=== PATIENT | female | born 1975 | race Asian ===

== ENCOUNTER 2020-03-08 12:48 | Emergency (ER) | payer BC, OTHER ==
[~2020-03-08] VITALS: Ht 157.5 cm; Wt 54.4 kg
--- NOTE | 2020-03-08 13:55 | NUR ---
DR RIOS REVIEWED XRAY RESULTS W/ PT - TO TAKE TO PMD. DISCHARGE INSTRUCTIONS GIVEN BY .
[2020-03-08 13:58] VITALS: BP 110/79
== END 2020-03-08 13:59 | disposition home or self-care (01) ==
LOC: ER 12:48
DX: U07.1 COVID-19 (principal); J12.89 Other viral pneumonia
CPT/HCPCS: 71045; A4663

== ENCOUNTER 2020-03-24 16:46 | Inpatient (IN) | payer BC, OTHER ==
[~2020-03-24] VITALS: Ht 157.5 cm; Wt 52.2 kg
[2020-03-24] MEDS ORDERED: Z GUARD REMEDY PASTE 57 GM TUBE TOP PRN (19:45)
[2020-03-24] MEDS ORDERED: POLY50DR OP (22:57)
[2020-03-24] MEDS ORDERED: METO-295 PO (22:57)
[2020-03-24] MEDS ORDERED: MELA1TAB2 PO (22:57)
[2020-03-24] MEDS ORDERED: BISA-79 PO (22:57)
[2020-03-24] MEDS ORDERED: GUAI5SYR PO (22:57)
[2020-03-24] MEDS ORDERED: ALBU18HF2 INH (22:57)
[2020-03-24] MEDS ORDERED: ONDA4TAB11 PO (22:57)
[2020-03-24] MEDS ORDERED: MIDO5TAB4 PO (22:57)
[2020-03-24] MEDS ORDERED: MULT-594 PO (22:57)
[2020-03-24] MEDS ORDERED: MAGN400O6 PO (22:57)
[2020-03-24] MEDS ORDERED: DIPH25CA83 PO (22:57)
[2020-03-24] MEDS ORDERED: THIA100T74 PO (22:57)
[2020-03-24] MEDS ORDERED: ENOX40DI SQ (22:57)
[2020-03-24] MEDS ORDERED: CHOL10002 PO (22:57)
[2020-03-24] MEDS ORDERED: BENZ200C53 PO (22:57)
[2020-03-24] MEDS ORDERED: ACET-2154 PO (22:57)
[2020-03-24] MEDS ORDERED: FOLI0.8T2 PO (22:57)
[2020-03-24] MEDS ORDERED: ACET160E61 PO (22:57)
[2020-03-24 23:30] VITALS: BP 91/69
--- NOTE | 2020-03-25 02:27 | NUR ---
Received a 44yr old female from [facility] with admitting diagnosis of Pneumonia/Covid (+) AAOx4 Patient was COVID (+) while in [place] then went home with ABT's on 03/09/20 but having SOB was admitted in [facility] with same diagnosis. On continous O2 @ 2L via nasal cannula. pulse ox 100% Denies any pain nor any discomfort. VSS Patient here for rehab secondary to weakness. Continent of bowel and bladder. Compliant with care and meds. Dr Crawford (admitting) called and made aware of patient's admission. He said he will reconcile the meds as soon as he gets a chance. Texted Dr Norman that patient is here for rehab. No orders made. Will monitor patient.
[2020-03-25 04:47] VITALS: BP 120/79
--- NOTE | 2020-03-25 06:59 | NUR ---
End of shift notes: Slept well throughout the night. No acute distress noted. Still awaiting for Dr Mercer to reconcile orders. Will monitor patient. VSS. Continent/incontinent of urine. Wears diapers. No BM noted this shift.
--- NOTE | 2020-03-25 08:00 | NUR ---
RECEIVED PATIENT IN BED AWAKE ALERT AND ORIENTED ON COVID ISOLATION AT THIS TIME PATIENT STATED WANTS HER MEDICATIONS WHICH HAS NOT BEEN RECONCILED YET AND DR NEWMAN IS AWARE AND STATED WILL RECONCILE TONY PATIENT AWARE.CALL LIGHTS AND HER PERSONAL BELONGINGS ARE WITHIN EASY REACH AT THIS TIME WILL CONTINUE TO OBSERVE.
[2020-03-25] MEDS ORDERED: ACETAMINOPHEN 325 MG TABLET PO PRN (09:00)
[2020-03-25] MEDS ORDERED: BISACODYL 5 MG TABLET.DR PO PRN (09:00)
[2020-03-25] MEDS ORDERED: METOCLOPRAMIDE HCL 10 MG TABLET PO PRN (09:00)
[2020-03-25] MEDS ORDERED: Medication Not On Formulary EA (Acetaminophen 650 MG) PO SCH (09:00)
[2020-03-25] MEDS ORDERED: MAGNESIUM HYDROXIDE 30 ML LIQUID UDC PO PRN (09:00)
[2020-03-25] MEDS ORDERED: diphenhydrAMINE 25 MG CAP PO PRN (09:15)
[2020-03-25] MEDS ORDERED: POLYVINYL ALCOHOL OPHT DROPS 15 ML BOTTLE OP PRN (09:15)
[2020-03-25] MEDS ORDERED: BENZONATATE 100 MG CAPSULE PO PRN (09:15)
[2020-03-25] MEDS ORDERED: ALBUTEROL SULFATE 2.5 MG/ 0.5 ML NEBU NEB PRN (09:15)
--- NOTE | 2020-03-25 09:15 | NUR ---
DR NEWMAN HERE TO SEE PATIENT WITH NEW ORDERS AND NOTED.
[2020-03-25] MEDS: FOLIC ACID/VITAMIN B COMP W-C TABLET PO SCH (09:47)
[2020-03-25] MEDS: CHOLECALCIFEROL 1,000 UNIT TABLET PO SCH (09:48)
[2020-03-25] MEDS: MULTIVITAMINS,THERAPEUTIC TABLET PO SCH (09:48)
[2020-03-25] MEDS: THIAMINE HCL 100 MG TABLET PO SCH (09:48)
[2020-03-25 10:04] LABS: CREATININE 0.8 mg/dL (0.6-1.3)
[2020-03-25 10:27] LABS: BASOPHILS # (AUTO) 0.1 K/uL (0.0-8.0); BASOPHILS % (AUTO) 0.6 % (0.0-2.0); EOSINOPHILS # (AUTO) 0.2 K/uL (0.0-0.7); EOSINOPHILS % (AUTO) 1.9 % (0.0-7.0); HEMATOCRIT 36.8 % (31.2-41.9); HEMOGLOBIN 12.6 g/dL (10.9-14.3); LYMPHOCYTES # (AUTO) 0.6 K/uL (20.0-40.0); LYMPHOCYTES % (AUTO) 6.5 % (20.5-51.5); MEAN CORPUSCULAR HGB CONC 34 g/dL (32.3-35.6); MEAN CORPUSCULAR VOLUME 75.7 fL (75.5-95.3); MONOCYTES # (AUTO) 0.9 K/uL (2.0-10.0); MONOCYTES % (AUTO) 9.8 % (0.0-11.0); NEUTROPHILS # (AUTO) 7.3 K/uL (1.8-8.9); NEUTROPHILS % (AUTO) 81.2 % (38.5-71.5); PLATELET COUNT (AUTO) 148 K/uL (179-408); RED BLOOD CELL COUNT(AUTO) 4.86 MIL/uL (3.63-4.92)
[2020-03-25 12:00] VITALS: BP 103/78
[2020-03-25] MEDS: ENOXAPARIN SODIUM 40 MG/0.4 ML DISP.SYRIN SQ SCH (12:43)
--- NOTE | 2020-03-25 12:58 | NUR ---
ST[facility]E M[facility] PROVIDER HERE WITH ORDER TO REPEAT RANDHAWA VIRUS PCR TEST AND NOTED PATIENT NOTIFIED.
[2020-03-25] MEDS: GUAIFENESIN/DEXTROMETHORPHAN 5 ML UDC PO PRN ×2 (14:25→22:36)
[2020-03-25] MEDS: ACETAMINOPHEN 650 MG/20.3 ML LIQUID UDC PO PRN ×2 (14:25→22:37)
--- NOTE | 2020-03-25 14:27 | NUR ---
MEDICATED WITH TYLENOL AND ROBITUSSIN ORDERED PER PATIENTS REQUEST.
--- NOTE | 2020-03-25 15:00 | NUR ---
RANDHAWA VIRUS SWAB DONE ORDERED AND SENT TO THE LAB.
[2020-03-25 15:59] VITALS: BP 119/74
--- NOTE | 2020-03-25 18:00 | NUR ---
PATIENT IS RESTING DENIES DISCOMFORTS AT THIS TIME REMAIN ON COVID ISOLATION AND PRECAUTION PENDING THE COVID PCR TEST ORDERED.
[2020-03-25 20:00] VITALS: BP 99/73
[2020-03-25] MEDS ORDERED: ALBUTEROL SULFATE 2.5 MG/ 0.5 ML NEBU INH PRN (22:30)
[2020-03-25] MEDS ORDERED: ALBUTEROL SULFATE 8 GM HFA.AER.AD IH PRN (23:30)
[2020-03-26 04:00] VITALS: BP 140/89
[2020-03-26] MEDS: GUAIFENESIN/DEXTROMETHORPHAN 5 ML UDC PO PRN ×3 (05:01→21:20)
[2020-03-26] MEDS: ACETAMINOPHEN 650 MG/20.3 ML LIQUID UDC PO PRN ×3 (05:01→21:21)
--- NOTE | 2020-03-26 06:30 | NUR ---
axox4, no acute distress noted, able to make needs known. VSS on On continuos O2 @ 2L via nasal cannula, pulse ox 98%, no SOB noted. C/o mild main on lateral left side 05/25 administered Tylenol per request. administered Robitussin per request. Denies any pain nor any discomfort. VSS. Skin intact. pt independently cares for self. Attended to all needs promptly, Snacks provided. Slept well. No new changes noted. Safety measure and COVID isolation precautions maintained. Will continue plan of care and will endorse oncoming nurse accordingly.
[2020-03-26 07:35] LABS: BASOPHILS % (AUTO) 0.1 % (0.0-2.0); EOSINOPHILS # (AUTO) 0.2 K/uL (0.0-0.7); EOSINOPHILS % (AUTO) 2.4 % (0.0-7.0); HEMATOCRIT 34.4 % (31.2-41.9); HEMOGLOBIN 11.7 g/dL (10.9-14.3); LYMPHOCYTES # (AUTO) 0.9 K/uL (20.0-40.0); LYMPHOCYTES % (AUTO) 11.5 % (20.5-51.5); MEAN CORPUSCULAR HEMOGLOBIN 25.9 uug (24.7-32.8); MEAN CORPUSCULAR HGB CONC 34 g/dL (32.3-35.6); MEAN CORPUSCULAR VOLUME 76.2 fL (75.5-95.3); MONOCYTES # (AUTO) 0.6 K/uL (2.0-10.0); NEUTROPHILS # (AUTO) 5.8 K/uL (1.8-8.9); PLATELET COUNT (AUTO) 124 K/uL (179-408); RED BLOOD CELL COUNT(AUTO) 4.52 MIL/uL (3.63-4.92); WHITE BLOOD COUNT (AUTO) 7.5 K/uL (3.8-11.8)
[2020-03-26 08:00] VITALS: BP 121/75
[2020-03-26 08:25] LABS: ALANINE AMINOTRANSFERASE 41 U/L (14-59); ALKALINE PHOSPHATASE 50 U/L (50-136); ASPARTATE AMINOTRANSFERASE 16 U/L (15-37); BILIRUBIN,DIRECT 0.3 mg/dL (0.0-0.2); BILIRUBIN,TOTAL 1.5 mg/dL (0.2-1.0); CARBON DIOXIDE 27 mmol/L (21-32); CHLORIDE 98 mmol/L (98-107); CREATININE 0.5 mg/dL (0.6-1.3); GLUCOSE 117 mg/dL (74-106); PHOSPHOROUS 3.5 mg/dL (2.5-4.9); POTASSIUM 3.9 mmol/L (3.5-5.1); TOTAL PROTEIN, SERUM 6.9 g/dL (6.4-8.2); UREA NITROGEN, BLOOD 6 mg/dL (7-18)
[2020-03-26] MEDS: ENOXAPARIN SODIUM 40 MG/0.4 ML DISP.SYRIN SQ SCH (08:36)
[2020-03-26] MEDS: CHOLECALCIFEROL 1,000 UNIT TABLET PO SCH (08:41)
[2020-03-26] MEDS: ZINC SULFATE 220 MG CAPSULE PO SCH (08:41)
[2020-03-26] MEDS: THIAMINE HCL 100 MG TABLET PO SCH (08:41)
[2020-03-26] MEDS: FOLIC ACID/VITAMIN B COMP W-C TABLET PO SCH (08:41)
[2020-03-26] MEDS: ASCORBIC ACID 500 MG TABLET PO SCH (08:41)
[2020-03-26] MEDS: MULTIVITAMINS,THERAPEUTIC TABLET PO SCH (08:41)
[2020-03-26 11:54] VITALS: BP 118/78
[2020-03-26] MEDS ORDERED: IV NS 1000 ML 1,000 ML IV ONE (12:15)
[2020-03-26] MEDS ORDERED: MEROPENEM 1 G in IV NORMAL SALINE 100 ML IV ONE (14:00)
[2020-03-26 16:12] VITALS: BP 141/71
[2020-03-26] MEDS: ALPRAZOLAM 0.25 MG TABLET PO PRN (18:25)
--- NOTE | 2020-03-26 18:39 | NUR ---
Patient sitting up at the edge of bed awake AOx4, increased her own O2 from 2L to 3.5L stating she feels SOB. SKPI midline placed, running NS @ 80cc. Sat up on chair during the day and ambulated with walker. Safety precaution in place. Stated a little anxious, Xanax PRN given as ordered. No other complaints at this time. Patient filled out POLST today with wishes of FULL CODE 2x attempt and DNI. Copy placed in chart and MD still needs to sign.
[2020-03-26 20:39] VITALS: BP 93/55
--- NOTE | 2020-03-26 21:00 | NUR ---
VSS, On continuos O2 @ 3.5 via NC titrated down to 2.5, tolerating well saturating 98-100%. No SOB noted. Administered Tylenol, Melatonin and Robitussin per patient request. SKIP midline flushed, running 80cc/hr NS. Attended to all needs promptly, Snacks provided. Safety measure and COVID isolation precautions maintained. Will continue to monitor.
[2020-03-26] MEDS: MELATONIN 3 MG TABLET PO PRN (21:21)
[2020-03-26] MEDS ORDERED: MEROPENEM 1 G in IV NORMAL SALINE 100 ML IV SCH (22:00)
[2020-03-27] MEDS: ACETAMINOPHEN 650 MG/20.3 ML LIQUID UDC PO PRN ×3 (03:07→20:17)
--- NOTE | 2020-03-27 03:07 | NUR ---
per pt request administered Tylenol, c/o spasms.
[2020-03-27 06:02] VITALS: BP 108/64
[2020-03-27] MEDS: MULTIVITAMINS,THERAPEUTIC TABLET PO SCH (09:00)
[2020-03-27 10:04] LABS: IRON, SERUM 126 ug/dL (50-175)
[2020-03-27] MEDS: ZINC SULFATE 220 MG CAPSULE PO SCH (11:11)
[2020-03-27] MEDS: FOLIC ACID/VITAMIN B COMP W-C TABLET PO SCH (11:12)
[2020-03-27] MEDS: CHOLECALCIFEROL 1,000 UNIT TABLET PO SCH (11:12)
[2020-03-27] MEDS: THIAMINE HCL 100 MG TABLET PO SCH (11:12)
[2020-03-27] MEDS: ASCORBIC ACID 500 MG TABLET PO SCH (11:12)
[2020-03-27] MEDS: ENOXAPARIN SODIUM 40 MG/0.4 ML DISP.SYRIN SQ SCH (11:18)
[2020-03-27] MEDS: GUAIFENESIN/DEXTROMETHORPHAN 5 ML UDC PO PRN ×3 (12:00→20:17)
[2020-03-27] MEDS: ALPRAZOLAM 0.25 MG TABLET PO PRN (12:01)
--- NOTE | 2020-03-27 20:00 | NUR ---
Received pt up in chair. No acute distress noted. On supplemental O2 saturating @98%/. Call light within reach. All needs attended to, safety measures maintained and will continue to monitor Pt.
--- NOTE | 2020-03-27 20:30 | NUR ---
Pt. c/o of back spasms. Administered Tylenol per Pt. request.
--- NOTE | 2020-03-27 20:30 | NUR ---
Pt. c/o cough. Administered Robitussin as ordered.
[2020-03-27 20:51] VITALS: BP 126/70
[2020-03-28] MEDS: GUAIFENESIN/DEXTROMETHORPHAN 5 ML UDC PO PRN ×3 (02:35→18:31)
[2020-03-28] MEDS: ACETAMINOPHEN 650 MG/20.3 ML LIQUID UDC PO PRN ×3 (02:35→18:31)
--- NOTE | 2020-03-28 02:40 | NUR ---
Pt. c/o of back spasms, administered Tylenol as ordered.
--- NOTE | 2020-03-28 02:45 | NUR ---
Pt. c/o cough, administered Robitussin as ordered.
[2020-03-28 04:25] VITALS: BP 112/61
[2020-03-28 07:55] VITALS: BP 119/80
[2020-03-28] MEDS: ASCORBIC ACID 500 MG TABLET PO SCH (09:19)
[2020-03-28] MEDS: THIAMINE HCL 100 MG TABLET PO SCH (09:19)
[2020-03-28] MEDS: ZINC SULFATE 220 MG CAPSULE PO SCH (09:19)
[2020-03-28] MEDS: MULTIVITAMINS,THERAPEUTIC TABLET PO SCH (09:19)
[2020-03-28] MEDS: FOLIC ACID/VITAMIN B COMP W-C TABLET PO SCH (09:19)
[2020-03-28] MEDS: CHOLECALCIFEROL 1,000 UNIT TABLET PO SCH (09:19)
[2020-03-28] MEDS: ENOXAPARIN SODIUM 40 MG/0.4 ML DISP.SYRIN SQ SCH (09:20)
--- NOTE | 2020-03-28 10:00 | NUR ---
OCCASSIONAL COUGH EPISODES MEDICATED WITH COUGH MEDICATIONS ORDERED
[2020-03-28 11:48] VITALS: BP_SYST 121; BP_DIAS 71; BP_DIAS 72
[2020-03-28 15:24] VITALS: BP 99/61
--- NOTE | 2020-03-28 17:00 | NUR ---
PT/OT /SPEECH THERAPIST WAS HERE AND SEEN PATIENT ENDURANCE IS FAIR CONTINUE WITH THERAPY ORDERED AND TOLERATING WELL
--- NOTE | 2020-03-28 18:44 | NUR ---
PATIENT REQUESTED FOR TYLENOL AND COUGH SYRUP GIVEN ORDERED
[2020-03-28 20:32] VITALS: BP 118/66
[2020-03-28] MEDS: MELATONIN 3 MG TABLET PO PRN (21:16)
[2020-03-28] MEDS: MEROPENEM 0.5 G in IV NORMAL SALINE 50 ML IV SCH (22:00)
--- NOTE | 2020-03-28 22:55 | NUR ---
Patient awake with O2 inhalation at 2 LPM via NC,Saturating well.Denies SOB or pain at this time. Midline on right upper arm patent and intact.Administered IV ATB Meropenem as ordered for PNA .No a/r noted.Continue on isolation for Covid.Patient ambulates to bathroom.Will continue to monitor.call light with in reach.
[2020-03-28] MEDS ORDERED: MEROPENEM 500MG/NS 50ML PB ***ER PYXIS ONLY IV ONE (23:03)
[2020-03-28] MEDS ORDERED: MEROPENEM 500 MG VIAL IV ONE (23:13)
[2020-03-29 04:23] VITALS: BP 129/61
[2020-03-29] MEDS: MEROPENEM 0.5 G in IV NORMAL SALINE 50 ML IV SCH (05:31)
[2020-03-29 08:00] VITALS: BP 104/55
[2020-03-29] MEDS: FOLIC ACID/VITAMIN B COMP W-C TABLET PO SCH (09:34)
[2020-03-29] MEDS: ASCORBIC ACID 500 MG TABLET PO SCH (09:34)
[2020-03-29] MEDS: MULTIVITAMINS,THERAPEUTIC TABLET PO SCH (09:34)
[2020-03-29] MEDS: THIAMINE HCL 100 MG TABLET PO SCH (09:34)
[2020-03-29] MEDS: ZINC SULFATE 220 MG CAPSULE PO SCH (09:34)
[2020-03-29] MEDS: CHOLECALCIFEROL 1,000 UNIT TABLET PO SCH (09:36)
[2020-03-29] MEDS: ENOXAPARIN SODIUM 40 MG/0.4 ML DISP.SYRIN SQ SCH (09:38)
[2020-03-29] MEDS: ACETAMINOPHEN 650 MG/20.3 ML LIQUID UDC PO PRN ×2 (09:38→21:00)
[2020-03-29] MEDS: GUAIFENESIN/DEXTROMETHORPHAN 5 ML UDC PO PRN ×2 (09:38→20:59)
[2020-03-29 11:00] VITALS: BP 120/73
[2020-03-29] MEDS: MEROPENEM 1 G in IV NORMAL SALINE 100 ML IV SCH ×2 (14:52→22:06)
[2020-03-29 15:18] VITALS: BP 106/73
--- NOTE | 2020-03-29 18:35 | NUR ---
Patient remains alert, oriented x 4, not in any form of distress, on 2LPM via nasal cannula. She denies any pain or discomfort. Assisted with her needs promptly. Patient compliant with medications and tolerated well. Call light and frequently used items placed within patient's reach. Will continue to monitor and will endorse accordingly.
[2020-03-29 20:00] VITALS: BP 105/61
[2020-03-29] MEDS: MIDODRINE HCL 5 MG TABLET PO PRN (21:39)
--- NOTE | 2020-03-29 23:29 | NUR ---
Received pt resting in bed. AAO x4. On 2L O2 via NC, no acute distress noted. Denies pain/ discomfort. Due meds given as ordered. Safety measures maintained. Call light and personal items within reach. Will continue to monitor.
[2020-03-30 04:00] VITALS: BP 130/77
[2020-03-30] MEDS: MEROPENEM 1 G in IV NORMAL SALINE 100 ML IV SCH ×3 (05:06→22:02)
[2020-03-30 08:35] LABS: CREATININE 0.6 mg/dL (0.6-1.3); POTASSIUM 3.6 mmol/L (3.5-5.1)
[2020-03-30] MEDS: GUAIFENESIN/DEXTROMETHORPHAN 5 ML UDC PO PRN ×3 (08:45→23:45)
[2020-03-30] MEDS: ACETAMINOPHEN 650 MG/20.3 ML LIQUID UDC PO PRN ×3 (08:45→23:49)
[2020-03-30] MEDS: MULTIVITAMINS,THERAPEUTIC TABLET PO SCH (08:46)
[2020-03-30] MEDS: ASCORBIC ACID 500 MG TABLET PO SCH (08:46)
[2020-03-30] MEDS: ZINC SULFATE 220 MG CAPSULE PO SCH (08:46)
[2020-03-30] MEDS: THIAMINE HCL 100 MG TABLET PO SCH (08:46)
[2020-03-30] MEDS: FOLIC ACID/VITAMIN B COMP W-C TABLET PO SCH (08:46)
[2020-03-30 08:47] LABS: BASOPHILS % (AUTO) 0.9 % (0.0-2.0); EOSINOPHILS # (AUTO) 0.2 K/uL (0.0-0.7); EOSINOPHILS % (AUTO) 3.5 % (0.0-7.0); HEMOGLOBIN 10.3 g/dL (10.9-14.3); LYMPHOCYTES # (AUTO) 0.9 K/uL (20.0-40.0); LYMPHOCYTES % (AUTO) 17.5 % (20.5-51.5); MEAN CORPUSCULAR HEMOGLOBIN 26.5 uug (24.7-32.8); MEAN CORPUSCULAR HGB CONC 34 g/dL (32.3-35.6); MEAN CORPUSCULAR VOLUME 77.2 fL (75.5-95.3); MONOCYTES # (AUTO) 0.4 K/uL (2.0-10.0); NEUTROPHILS # (AUTO) 3.4 K/uL (1.8-8.9); NEUTROPHILS % (AUTO) 69.1 % (38.5-71.5); PLATELET COUNT (AUTO) 100 K/uL (179-408); RED BLOOD CELL COUNT(AUTO) 3.89 MIL/uL (3.63-4.92); WHITE BLOOD COUNT (AUTO) 4.9 K/uL (3.8-11.8)
[2020-03-30] MEDS: CHOLECALCIFEROL 1,000 UNIT TABLET PO SCH (08:47)
[2020-03-30] MEDS: ENOXAPARIN SODIUM 40 MG/0.4 ML DISP.SYRIN SQ SCH (08:48)
[2020-03-30 12:27] VITALS: BP 98/68
[2020-03-30 16:10] VITALS: BP 107/52
--- NOTE | 2020-03-30 19:34 | NUR ---
EOSS: Pt in awake, A&Ox4. No s/s of acute distress, denies pain or discomfort. Pt on RA with O2 97%. Able to make needs known, all needs attended to promptly. Care given as ordered. Due meds administered per order. SKIP midline patent and intact. Safety measures and fall precautions maintained during shift. Call light and belongings within reach. Will endorse care to night shift supervisor nurse.
[2020-03-30 20:00] VITALS: BP 112/73
--- NOTE | 2020-03-30 22:21 | NUR ---
Received pt resting in bed. AAO x4. On room air 97%, no acute distress noted. Denies pain/ discomfort. Due med given as ordered. SKIP midline, patent and intact. Safety measures maintained. Call light and personal items within reach. Will continue to monitor.
[2020-03-30] MEDS: MELATONIN 3 MG TABLET PO PRN (23:45)
[2020-03-31] MEDS: MEROPENEM 1 G in IV NORMAL SALINE 100 ML IV SCH ×3 (05:08→21:34)
[2020-03-31] MEDS: THIAMINE HCL 100 MG TABLET PO SCH (09:49)
[2020-03-31] MEDS: CHOLECALCIFEROL 1,000 UNIT TABLET PO SCH (09:49)
[2020-03-31] MEDS: FOLIC ACID/VITAMIN B COMP W-C TABLET PO SCH (09:49)
[2020-03-31] MEDS: ASCORBIC ACID 500 MG TABLET PO SCH (09:49)
[2020-03-31] MEDS: ZINC SULFATE 220 MG CAPSULE PO SCH (09:49)
[2020-03-31] MEDS: GUAIFENESIN/DEXTROMETHORPHAN 5 ML UDC PO PRN ×3 (09:49→21:23)
[2020-03-31] MEDS: MULTIVITAMINS,THERAPEUTIC TABLET PO SCH (09:49)
[2020-03-31] MEDS: ACETAMINOPHEN 650 MG/20.3 ML LIQUID UDC PO PRN ×2 (09:49→21:23)
[2020-03-31] MEDS: ENOXAPARIN SODIUM 40 MG/0.4 ML DISP.SYRIN SQ SCH (10:50)
[2020-03-31 16:00] VITALS: BP 108/78
[2020-03-31 20:00] VITALS: BP 107/73
[2020-03-31] MEDS: MELATONIN 3 MG TABLET PO PRN (21:23)
--- NOTE | 2020-03-31 23:14 | NUR ---
Patient alert x4.Ambulates to bath room.Placed oxygen back at 2LPM via NC.Midline on right upper arm patent and intact.Administered IV ATB as ordered.No a/r noted. Called pharmacy 5x to verified acyclovir.Medication given .Patient noted with cough .Robitussin given.Melatonin given PRN as per patient request. Continue safety measures.Will continue to monitor.
[2020-04-01] MEDS: ACYCLOVIR 200 MG CAPSULE PO SCH ×4 (00:08→17:24)
[2020-04-01] MEDS: MEROPENEM 1 G in IV NORMAL SALINE 100 ML IV SCH ×3 (05:02→22:39)
--- NOTE | 2020-04-01 06:54 | NUR ---
Patient awake .on RA saturating 96%.Patient requesting to speak to branch administrator via face time in A.M She also requesting to have psych eval and E[employer] Project Manager change.Will endorse to oncoming shift.
[2020-04-01 08:00] VITALS: BP 123/71
[2020-04-01] MEDS: ASCORBIC ACID 500 MG TABLET PO SCH (08:14)
[2020-04-01] MEDS: THIAMINE HCL 100 MG TABLET PO SCH (08:14)
[2020-04-01] MEDS: ACETAMINOPHEN 650 MG/20.3 ML LIQUID UDC PO PRN ×2 (08:14→22:02)
[2020-04-01] MEDS: ZINC SULFATE 220 MG CAPSULE PO SCH (08:14)
[2020-04-01] MEDS: CHOLECALCIFEROL 1,000 UNIT TABLET PO SCH (08:14)
[2020-04-01] MEDS: FOLIC ACID/VITAMIN B COMP W-C TABLET PO SCH (08:14)
[2020-04-01] MEDS: MULTIVITAMINS,THERAPEUTIC TABLET PO SCH (08:14)
[2020-04-01] MEDS: GUAIFENESIN/DEXTROMETHORPHAN 5 ML UDC PO PRN ×2 (08:14→12:39)
[2020-04-01] MEDS: ENOXAPARIN SODIUM 40 MG/0.4 ML DISP.SYRIN SQ SCH (08:18)
[2020-04-01 14:28] VITALS: BP 118/65
--- NOTE | 2020-04-01 19:26 | NUR ---
pt resting in bed, awake alert and oriented x4. pt on RA saturating 97%, no signs of distress noted. medications given as ordered. bed in low and locked position, safety precautions in place, will endorse to oncoming nurse.
[2020-04-01 20:00] VITALS: BP 126/75
--- NOTE | 2020-04-01 20:00 | NUR ---
OPENING NOTES: PT resting in bed, awake alert and oriented x4. PT on RA saturating 95%, no signs of distress noted. Bed in low and locked position, safety precautions in place, will continue to monitor and follow the plan of care.
[2020-04-01] MEDS: MELATONIN 3 MG TABLET PO PRN (22:02)
[2020-04-01] MEDS: CULTURELLE CAPSULE PO SCH (22:02)
[2020-04-02] MEDS: MEROPENEM 1 G in IV NORMAL SALINE 100 ML IV SCH ×2 (05:18→13:15)
--- NOTE | 2020-04-02 06:38 | NUR ---
CLOSING NOTES: Patient A/O x4 on 2L nasal cannula saturating at 95%.Patient requesting to speak to educational administrator via face time in A.M. PRN meds (Melatonin, Acetaminophen) given per PT request. Will endorse to oncoming shift.
[2020-04-02 07:29] LABS: BASOPHILS % (AUTO) 0.9 % (0.0-2.0); EOSINOPHILS # (AUTO) 0.2 K/uL (0.0-0.7); EOSINOPHILS % (AUTO) 5.5 % (0.0-7.0); HEMATOCRIT 28.2 % (31.2-41.9); HEMOGLOBIN 9.5 g/dL (10.9-14.3); LYMPHOCYTES # (AUTO) 0.8 K/uL (20.0-40.0); LYMPHOCYTES % (AUTO) 26.6 % (20.5-51.5); MEAN CORPUSCULAR HEMOGLOBIN 26.6 uug (24.7-32.8); MEAN CORPUSCULAR HGB CONC 34 g/dL (32.3-35.6); MONOCYTES # (AUTO) 0.3 K/uL (2.0-10.0); MONOCYTES % (AUTO) 9.5 % (0.0-11.0); NEUTROPHILS # (AUTO) 1.8 K/uL (1.8-8.9); NEUTROPHILS % (AUTO) 57.5 % (38.5-71.5); PLATELET COUNT (AUTO) 81 K/uL (179-408); RED BLOOD CELL COUNT(AUTO) 3.57 MIL/uL (3.63-4.92); WHITE BLOOD COUNT (AUTO) 3.1 K/uL (3.8-11.8)
[2020-04-02 08:17] LABS: ALANINE AMINOTRANSFERASE 36 U/L (14-59); ALKALINE PHOSPHATASE 43 U/L (50-136); ASPARTATE AMINOTRANSFERASE 20 U/L (15-37); BILIRUBIN,TOTAL 1.3 mg/dL (0.2-1.0); CARBON DIOXIDE 25 mmol/L (21-32); CHLORIDE 108 mmol/L (98-107); CREATININE 0.5 mg/dL (0.6-1.3); GLUCOSE 98 mg/dL (74-106); POTASSIUM 3.6 mmol/L (3.5-5.1); TOTAL PROTEIN, SERUM 5.9 g/dL (6.4-8.2); UREA NITROGEN, BLOOD 1 mg/dL (7-18)
[2020-04-02] MEDS: ACYCLOVIR 200 MG CAPSULE PO SCH ×3 (08:33→16:29)
[2020-04-02] MEDS: ZINC SULFATE 220 MG CAPSULE PO SCH (08:33)
[2020-04-02] MEDS: ACETAMINOPHEN 650 MG/20.3 ML LIQUID UDC PO PRN (08:33)
[2020-04-02] MEDS: GUAIFENESIN/DEXTROMETHORPHAN 5 ML UDC PO PRN ×2 (08:33→21:46)
[2020-04-02] MEDS: FOLIC ACID/VITAMIN B COMP W-C TABLET PO SCH (08:33)
[2020-04-02] MEDS: CHOLECALCIFEROL 1,000 UNIT TABLET PO SCH (08:33)
[2020-04-02] MEDS: CULTURELLE CAPSULE PO SCH ×2 (08:34→21:09)
[2020-04-02] MEDS: THIAMINE HCL 100 MG TABLET PO SCH (08:34)
[2020-04-02] MEDS: ASCORBIC ACID 500 MG TABLET PO SCH (08:34)
[2020-04-02] MEDS: MULTIVITAMINS,THERAPEUTIC TABLET PO SCH (08:34)
[2020-04-02] MEDS: ENOXAPARIN SODIUM 40 MG/0.4 ML DISP.SYRIN SQ SCH (08:37)
[2020-04-02 15:21] VITALS: BP 123/74
[2020-04-02 20:25] VITALS: BP 108/65
[2020-04-02] MEDS: MELATONIN 3 MG TABLET PO PRN (21:48)
[2020-04-03 04:20] VITALS: BP 106/70
--- NOTE | 2020-04-03 06:25 | NUR ---
Condition unchanged. AAOx4 OOB to the BR. Voiding well. BM x2 this shift. No acute distress noted. Patient maintained on isolation, COVID (+) All due meds given without any problem. All needs attended and met.
[2020-04-03 08:00] VITALS: BP 125/79
[2020-04-03 09:03] LABS: BASOPHILS % (AUTO) 0.3 % (0.0-2.0); EOSINOPHILS # (AUTO) 0.1 K/uL (0.0-0.7); EOSINOPHILS % (AUTO) 3.7 % (0.0-7.0); HEMATOCRIT 32.2 % (31.2-41.9); LYMPHOCYTES # (AUTO) 1.2 K/uL (20.0-40.0); LYMPHOCYTES % (AUTO) 30.9 % (20.5-51.5); MEAN CORPUSCULAR HEMOGLOBIN 26.9 uug (24.7-32.8); MEAN CORPUSCULAR HGB CONC 34 g/dL (32.3-35.6); MEAN CORPUSCULAR VOLUME 78.4 fL (75.5-95.3); MONOCYTES # (AUTO) 0.3 K/uL (2.0-10.0); MONOCYTES % (AUTO) 8.3 % (0.0-11.0); NEUTROPHILS # (AUTO) 2.1 K/uL (1.8-8.9); NEUTROPHILS % (AUTO) 56.8 % (38.5-71.5); PLATELET COUNT (AUTO) 104 K/uL (179-408); RED BLOOD CELL COUNT(AUTO) 4.11 MIL/uL (3.63-4.92); WHITE BLOOD COUNT (AUTO) 3.8 K/uL (3.8-11.8)
[2020-04-03 09:11] LABS: CARBON DIOXIDE 25 mmol/L (21-32); CHLORIDE 104 mmol/L (98-107); CREATININE 0.4 mg/dL (0.6-1.3); GLUCOSE 101 mg/dL (74-106); PHOSPHOROUS 2.6 mg/dL (2.5-4.9); POTASSIUM 3.9 mmol/L (3.5-5.1); UREA NITROGEN, BLOOD 1 mg/dL (7-18)
[2020-04-03] MEDS: CHOLECALCIFEROL 1,000 UNIT TABLET PO SCH (09:52)
[2020-04-03] MEDS: GUAIFENESIN/DEXTROMETHORPHAN 5 ML UDC PO PRN ×2 (09:52→18:30)
[2020-04-03] MEDS: ASCORBIC ACID 500 MG TABLET PO SCH (09:53)
[2020-04-03] MEDS: MULTIVITAMINS,THERAPEUTIC TABLET PO SCH (09:53)
[2020-04-03] MEDS: FOLIC ACID/VITAMIN B COMP W-C TABLET PO SCH (09:53)
[2020-04-03] MEDS: ZINC SULFATE 220 MG CAPSULE PO SCH (09:53)
[2020-04-03] MEDS: CULTURELLE CAPSULE PO SCH ×2 (09:53→20:24)
[2020-04-03] MEDS: ACYCLOVIR 200 MG CAPSULE PO SCH ×3 (09:53→18:30)
[2020-04-03] MEDS: THIAMINE HCL 100 MG TABLET PO SCH (09:53)
[2020-04-03] MEDS: ACETAMINOPHEN 650 MG/20.3 ML LIQUID UDC PO PRN ×2 (13:25→23:39)
[2020-04-03 16:50] VITALS: BP 111/65
[2020-04-03 21:03] VITALS: BP 110/46
[2020-04-03] MEDS: MELATONIN 3 MG TABLET PO PRN (23:41)
--- NOTE | 2020-04-04 04:03 | NUR ---
No significant change or event throughout the shift. No acute distress noted. Right upper arm PICC line, patent and intact. Central line site cleaned and dressing changed. All needs attended to promptly. Safety measures maintained. Call light and personal items within reach. Continue to monitor.
[2020-04-04] MEDS: MIDODRINE HCL 5 MG TABLET PO PRN (05:01)
--- NOTE | 2020-04-04 05:01 | NUR ---
Pt's BP this morning 92/46. Pt refused PRN midodrine. Pt stated, "I am okay, my normal is 90/60, I don't need medication". Risks and benefits explained, still refused. Continue to monitor.
[2020-04-04 05:45] VITALS: BP 92/46
[2020-04-04] MEDS: CHOLECALCIFEROL 1,000 UNIT TABLET PO SCH (08:06)
[2020-04-04] MEDS: THIAMINE HCL 100 MG TABLET PO SCH (08:06)
[2020-04-04] MEDS: ZINC SULFATE 220 MG CAPSULE PO SCH (08:06)
[2020-04-04] MEDS: FOLIC ACID/VITAMIN B COMP W-C TABLET PO SCH (08:06)
[2020-04-04] MEDS: CULTURELLE CAPSULE PO SCH ×2 (08:06→20:47)
[2020-04-04] MEDS: MULTIVITAMINS,THERAPEUTIC TABLET PO SCH (08:06)
[2020-04-04] MEDS: ASCORBIC ACID 500 MG TABLET PO SCH (08:06)
[2020-04-04 08:08] LABS: CARBON DIOXIDE 26 mmol/L (21-32); CHLORIDE 107 mmol/L (98-107); CREATININE 0.5 mg/dL (0.6-1.3); GLUCOSE 96 mg/dL (74-106); POTASSIUM 3.6 mmol/L (3.5-5.1); UREA NITROGEN, BLOOD 3 mg/dL (7-18)
[2020-04-04 08:22] LABS: BASOPHILS % (AUTO) 0.3 % (0.0-2.0); EOSINOPHILS # (AUTO) 0.1 K/uL (0.0-0.7); EOSINOPHILS % (AUTO) 3.4 % (0.0-7.0); HEMATOCRIT 28.9 % (31.2-41.9); HEMOGLOBIN 10.1 g/dL (10.9-14.3); LYMPHOCYTES # (AUTO) 1.2 K/uL (20.0-40.0); LYMPHOCYTES % (AUTO) 33.4 % (20.5-51.5); MEAN CORPUSCULAR HEMOGLOBIN 27.3 uug (24.7-32.8); MEAN CORPUSCULAR HGB CONC 35 g/dL (32.3-35.6); MEAN CORPUSCULAR VOLUME 78.1 fL (75.5-95.3); MONOCYTES # (AUTO) 0.3 K/uL (2.0-10.0); MONOCYTES % (AUTO) 9.8 % (0.0-11.0); NEUTROPHILS # (AUTO) 1.8 K/uL (1.8-8.9); NEUTROPHILS % (AUTO) 53.1 % (38.5-71.5); PLATELET COUNT (AUTO) 93 K/uL (179-408); WHITE BLOOD COUNT (AUTO) 3.4 K/uL (3.8-11.8)
[2020-04-04] MEDS: ACETAMINOPHEN 650 MG/20.3 ML LIQUID UDC PO PRN ×2 (08:27→23:21)
[2020-04-04] MEDS: GUAIFENESIN/DEXTROMETHORPHAN 5 ML UDC PO PRN ×2 (08:27→23:14)
[2020-04-04 16:00] VITALS: BP 101/71
--- NOTE | 2020-04-04 18:29 | NUR ---
no changes noted during shift, patient is alert, oriented x4, room air, tolerating going to bathroom to bed, and ambulating to the bathroom without any distress, still noted with mild cough, cough syrup administered per patient request. effective.
[2020-04-04 20:03] VITALS: BP 106/62
[2020-04-04 21:20] LABS: BAND % (MANUAL) 1 % (0-10); EOSINOPHILS % (MANUAL) 4 % (0-8); LYMPHOCYTES % (MANUAL) 21 % (20-40); MONOCYTES % (MANUAL) 8 % (2-10); NEUTROPHILS % (MANUAL) 65 % (42-75)
[2020-04-04] MEDS: MELATONIN 3 MG TABLET PO PRN (23:14)
[2020-04-05 04:03] VITALS: BP_SYST 101; BP_SYST 106; BP_DIAS 62; BP_DIAS 63
[2020-04-05 06:49] LABS: BASOPHILS % (AUTO) 0.3 % (0.0-2.0); EOSINOPHILS # (AUTO) 0.1 K/uL (0.0-0.7); EOSINOPHILS % (AUTO) 3.9 % (0.0-7.0); HEMATOCRIT 30.4 % (31.2-41.9); HEMOGLOBIN 10.3 g/dL (10.9-14.3); LYMPHOCYTES # (AUTO) 1.1 K/uL (20.0-40.0); LYMPHOCYTES % (AUTO) 34.3 % (20.5-51.5); MEAN CORPUSCULAR HEMOGLOBIN 26.9 uug (24.7-32.8); MEAN CORPUSCULAR HGB CONC 34 g/dL (32.3-35.6); MEAN CORPUSCULAR VOLUME 79.7 fL (75.5-95.3); MONOCYTES # (AUTO) 0.3 K/uL (2.0-10.0); MONOCYTES % (AUTO) 10.3 % (0.0-11.0); NEUTROPHILS # (AUTO) 1.6 K/uL (1.8-8.9); NEUTROPHILS % (AUTO) 51.2 % (38.5-71.5); PLATELET COUNT (AUTO) 102 K/uL (179-408); RED BLOOD CELL COUNT(AUTO) 3.82 MIL/uL (3.63-4.92); WHITE BLOOD COUNT (AUTO) 3.2 K/uL (3.8-11.8)
[2020-04-05 07:06] LABS: ALANINE AMINOTRANSFERASE 28 U/L (14-59); ALKALINE PHOSPHATASE 50 U/L (50-136); ASPARTATE AMINOTRANSFERASE 15 U/L (15-37); BILIRUBIN,TOTAL 1.8 mg/dL (0.2-1.0); CARBON DIOXIDE 26 mmol/L (21-32); CHLORIDE 107 mmol/L (98-107); CREATININE 0.4 mg/dL (0.6-1.3); GLUCOSE 84 mg/dL (74-106); POTASSIUM 3.4 mmol/L (3.5-5.1); TOTAL PROTEIN, SERUM 6.1 g/dL (6.4-8.2); UREA NITROGEN, BLOOD 2 mg/dL (7-18)
[2020-04-05 07:15] LABS: THYROID STIMULATING HORMONE 1.013 mIU/mL (0.358-3.740)
[2020-04-05] MEDS: ASCORBIC ACID 500 MG TABLET PO SCH (08:11)
[2020-04-05] MEDS: CHOLECALCIFEROL 1,000 UNIT TABLET PO SCH (08:11)
[2020-04-05] MEDS: FOLIC ACID/VITAMIN B COMP W-C TABLET PO SCH (08:13)
[2020-04-05] MEDS: ZINC SULFATE 220 MG CAPSULE PO SCH (08:13)
[2020-04-05] MEDS: MULTIVITAMINS,THERAPEUTIC TABLET PO SCH (08:13)
[2020-04-05] MEDS: CULTURELLE CAPSULE PO SCH ×2 (08:13→20:59)
[2020-04-05] MEDS: THIAMINE HCL 100 MG TABLET PO SCH (08:13)
[2020-04-05] MEDS: ACETAMINOPHEN 650 MG/20.3 ML LIQUID UDC PO PRN ×2 (08:22→23:13)
[2020-04-05] MEDS: GUAIFENESIN/DEXTROMETHORPHAN 5 ML UDC PO PRN ×2 (08:22→23:13)
[2020-04-05 09:00] VITALS: BP 116/78
--- NOTE | 2020-04-05 09:51 | NUR ---
Informed Dr. Arauz who is in the unit about Potassium level 3.4 with no new order at this time.
[2020-04-05] MEDS ORDERED: POTASSIUM CHLORIDE 20 MEQ TAB.PRT.SR PO ONE (12:00)
[2020-04-05] MEDS: ENSURE CLEAR 240 ML LIQUID (MIX BERRY) PO SCH ×2 (13:01→19:03)
[2020-04-05 15:56] VITALS: BP 105/58
[2020-04-05 20:00] VITALS: BP 115/66
[2020-04-05] MEDS: MELATONIN 3 MG TABLET PO PRN (23:13)
[2020-04-06 04:00] VITALS: BP 103/58
--- NOTE | 2020-04-06 05:23 | NUR ---
Shift End Report: Vs stable. slept good. No complaint presented. Very independent. All needs attended and met. No significant event reported all night. Continue current rehab plan of care.
[2020-04-06 08:29] VITALS: BP 105/72
[2020-04-06] MEDS: ZINC SULFATE 220 MG CAPSULE PO SCH (08:56)
[2020-04-06] MEDS: CHOLECALCIFEROL 1,000 UNIT TABLET PO SCH (08:56)
[2020-04-06] MEDS: CULTURELLE CAPSULE PO SCH ×2 (08:56→20:44)
[2020-04-06] MEDS: MULTIVITAMINS,THERAPEUTIC TABLET PO SCH (08:56)
[2020-04-06] MEDS: THIAMINE HCL 100 MG TABLET PO SCH (08:56)
[2020-04-06] MEDS: ENSURE CLEAR 240 ML LIQUID (MIX BERRY) PO SCH ×3 (08:57→16:09)
[2020-04-06] MEDS: ASCORBIC ACID 500 MG TABLET PO SCH (08:58)
[2020-04-06] MEDS: FOLIC ACID/VITAMIN B COMP W-C TABLET PO SCH (08:58)
[2020-04-06] MEDS: GUAIFENESIN/DEXTROMETHORPHAN 5 ML UDC PO PRN ×2 (09:22→22:07)
[2020-04-06 15:43] VITALS: BP 123/73
--- NOTE | 2020-04-06 18:59 | NUR ---
no changes noted during shift, needs attended timely
[2020-04-06 20:25] VITALS: BP 110/74
[2020-04-06] MEDS: MELATONIN 3 MG TABLET PO PRN (22:07)
[2020-04-06] MEDS: ACETAMINOPHEN 650 MG/20.3 ML LIQUID UDC PO PRN (22:07)
[2020-04-07 04:00] VITALS: BP 104/53
--- NOTE | 2020-04-07 06:17 | NUR ---
Shift End Report: No significant event reported all night, Slept well. Continue current rehab plan of care.
[2020-04-07 07:12] LABS: BASOPHILS % (AUTO) 0.6 % (0.0-2.0); EOSINOPHILS # (AUTO) 0.1 K/uL (0.0-0.7); EOSINOPHILS % (AUTO) 3.7 % (0.0-7.0); HEMATOCRIT 32.8 % (31.2-41.9); HEMOGLOBIN 11.2 g/dL (10.9-14.3); LYMPHOCYTES # (AUTO) 1.2 K/uL (20.0-40.0); LYMPHOCYTES % (AUTO) 33.9 % (20.5-51.5); MEAN CORPUSCULAR HEMOGLOBIN 27.1 uug (24.7-32.8); MEAN CORPUSCULAR HGB CONC 34 g/dL (32.3-35.6); MEAN CORPUSCULAR VOLUME 79.4 fL (75.5-95.3); MONOCYTES # (AUTO) 0.4 K/uL (2.0-10.0); MONOCYTES % (AUTO) 11.8 % (0.0-11.0); NEUTROPHILS # (AUTO) 1.8 K/uL (1.8-8.9); PLATELET COUNT (AUTO) 142 K/uL (179-408); RED BLOOD CELL COUNT(AUTO) 4.13 MIL/uL (3.63-4.92); WHITE BLOOD COUNT (AUTO) 3.7 K/uL (3.8-11.8)
[2020-04-07 07:36] LABS: CARBON DIOXIDE 24 mmol/L (21-32); CHLORIDE 103 mmol/L (98-107); CREATININE 0.4 mg/dL (0.6-1.3); GLUCOSE 110 mg/dL (74-106); MAGNESIUM 1.7 mg/dL (1.8-2.4); PHOSPHOROUS 4.7 mg/dL (2.5-4.9); POTASSIUM 3.7 mmol/L (3.5-5.1); UREA NITROGEN, BLOOD 6 mg/dL (7-18)
[2020-04-07 07:54] VITALS: BP 122/59
[2020-04-07] MEDS: ASCORBIC ACID 500 MG TABLET PO SCH (08:19)
[2020-04-07] MEDS: CULTURELLE CAPSULE PO SCH ×2 (08:19→21:19)
[2020-04-07] MEDS: THIAMINE HCL 100 MG TABLET PO SCH (08:19)
[2020-04-07] MEDS: MULTIVITAMINS,THERAPEUTIC TABLET PO SCH (08:19)
[2020-04-07] MEDS: ZINC SULFATE 220 MG CAPSULE PO SCH (08:19)
[2020-04-07] MEDS: CHOLECALCIFEROL 1,000 UNIT TABLET PO SCH (08:19)
[2020-04-07] MEDS: ENSURE CLEAR 240 ML LIQUID (MIX BERRY) PO SCH ×3 (08:20→17:33)
[2020-04-07] MEDS: FOLIC ACID/VITAMIN B COMP W-C TABLET PO SCH (08:32)
[2020-04-07] MEDS: GUAIFENESIN/DEXTROMETHORPHAN 5 ML UDC PO PRN ×2 (08:32→21:19)
[2020-04-07] MEDS: ACETAMINOPHEN 650 MG/20.3 ML LIQUID UDC PO PRN ×2 (08:32→21:19)
[2020-04-07] MEDS ORDERED: MAGNESIUM OXIDE 400 MG TABLET PO ONE (09:45)
[2020-04-07 14:52] VITALS: BP 111/73
--- NOTE | 2020-04-07 19:30 | NUR ---
no changes noted during shift, no distress noted
[2020-04-07 20:00] VITALS: BP 111/70
[2020-04-07] MEDS: MELATONIN 3 MG TABLET PO PRN (21:26)
--- NOTE | 2020-04-07 21:30 | NUR ---
axox4, no acute distress noted, able to make needs known. VSS on RA ox @ 95%, no SOB noted. Denies any pain at the moment but pt requested Tylenol PRN. Administered Robitussin and Melatonin PRN., per pt request. All due medication administered. Skin intact. Attended to all needs promptly, Snacks provided. Slept well. No new changes noted. Safety measure maintained. Will continue plan of care and will endorse oncoming nurse accordingly.
[2020-04-08] MEDS: ACETAMINOPHEN 650 MG/20.3 ML LIQUID UDC PO PRN ×2 (10:01→19:52)
[2020-04-08] MEDS: GUAIFENESIN/DEXTROMETHORPHAN 5 ML UDC PO PRN ×2 (10:01→19:52)
[2020-04-08] MEDS: CULTURELLE CAPSULE PO SCH ×2 (10:02→19:52)
[2020-04-08] MEDS: CHOLECALCIFEROL 1,000 UNIT TABLET PO SCH (10:02)
[2020-04-08] MEDS: ASCORBIC ACID 500 MG TABLET PO SCH (10:03)
[2020-04-08] MEDS: FOLIC ACID/VITAMIN B COMP W-C TABLET PO SCH (10:03)
[2020-04-08] MEDS: THIAMINE HCL 100 MG TABLET PO SCH (10:04)
[2020-04-08] MEDS: MULTIVITAMINS,THERAPEUTIC TABLET PO SCH (10:04)
[2020-04-08] MEDS: ENSURE CLEAR 240 ML LIQUID (MIX BERRY) PO SCH ×3 (10:06→18:10)
[2020-04-08] MEDS: ZINC SULFATE 220 MG CAPSULE PO SCH (10:07)
[2020-04-08 10:20] VITALS: BP 106/71
--- NOTE | 2020-04-08 15:00 | NUR ---
PT NOTE Pt declined attempt to assess stairs, reports she has no concerns for home d/t. Attempted f/u x3 however pt stated she was busy catching up on meals, resting and arranging for d/t. Lead PT made aware. Noted pt Independent with gait and no AD needed from last PT NOTE.
[2020-04-08 16:13] VITALS: BP 108/80
[2020-04-08 18:54] LABS: BASOPHILS % (AUTO) 0.6 % (0.0-2.0); EOSINOPHILS # (AUTO) 0.1 K/uL (0.0-0.7); EOSINOPHILS % (AUTO) 1.7 % (0.0-7.0); HEMATOCRIT 37.9 % (31.2-41.9); HEMOGLOBIN 12.3 g/dL (10.9-14.3); LYMPHOCYTES # (AUTO) 1.5 K/uL (20.0-40.0); LYMPHOCYTES % (AUTO) 31.2 % (20.5-51.5); MEAN CORPUSCULAR HEMOGLOBIN 26.6 uug (24.7-32.8); MEAN CORPUSCULAR HGB CONC 33 g/dL (32.3-35.6); MEAN CORPUSCULAR VOLUME 81.7 fL (75.5-95.3); MONOCYTES # (AUTO) 0.3 K/uL (2.0-10.0); MONOCYTES % (AUTO) 6.8 % (0.0-11.0); NEUTROPHILS # (AUTO) 2.9 K/uL (1.8-8.9); NEUTROPHILS % (AUTO) 59.7 % (38.5-71.5); PLATELET COUNT (AUTO) 185 K/uL (179-408); RED BLOOD CELL COUNT(AUTO) 4.64 MIL/uL (3.63-4.92); WHITE BLOOD COUNT (AUTO) 4.8 K/uL (3.8-11.8)
[2020-04-08 18:58] LABS: CREATININE 0.6 mg/dL (0.6-1.3)
[2020-04-08] MEDS: MELATONIN 3 MG TABLET PO PRN (19:52)
[2020-04-08 20:00] VITALS: BP 108/74
--- NOTE | 2020-04-08 20:00 | NUR ---
No acute distress noted, No SOB noted. Patient received gathering her belongings, ready to go home. VSS on RA ox @ 96%. ll due medication administered. Pt requested Tylenol, Robitussin and Melatonin PRN, per pt request, administered. Attended to all needs promptly. Safety measure maintained. Will continue discharge plan of care.
[2020-04-08 20:50] VITALS: BP 110/78
--- NOTE | 2020-04-08 20:57 | NUR ---
Discharge note: Pt deemed stable for discharge. D/C home with [facility] services.Pt provided with medication recon, aware and agreeable for discharge. All personal belongings prepared, pt denies any missing items. Skin assessment completed, no new skin condition noted. SKIP midline removed. Discussed discharge instructions with pt, including mediation and follow up visit with PCP. Pt verbalized clear understanding of d/c instructions. Discharge papers and inventory form signed by pt. Pt left unit at 2100 in stable condition via wheelchair, picked up by boyfriend via car.
== END 2020-04-08 21:54 | disposition home health service (06) | DRG 177 ==
PROVIDERS: ADMIT Physical Medicine & Rehabilitation Pain Medicine; ATTEND Physical Medicine & Rehabilitation Pain Medicine
PROC: 05HY33Z Insertion of Infusion Device into Upper Vein, Percutaneous Approach (ICD-10-PCS; principal; 2020-03-26)
DX: U07.1 COVID-19 (principal); J12.82 Pneumonia due to coronavirus disease 2019; J96.01 Acute respiratory failure with hypoxia; D68.59 Other primary thrombophilia; F41.9 Anxiety disorder, unspecified; R13.10 Dysphagia, unspecified; R26.2 Difficulty in walking, not elsewhere classified; M62.838 Other muscle spasm; D64.9 Anemia, unspecified; D69.6 Thrombocytopenia, unspecified; E04.2 Nontoxic multinodular goiter; E83.42 Hypomagnesemia; E87.6 Hypokalemia; Z90.49 Acquired absence of other specified parts of digestive tract; M54.2 Cervicalgia; R73.9 Hyperglycemia, unspecified
CPT/HCPCS: 36415; 70030-TC; 71045; 83550; 83605; 83735; 84100; 84443; 84481; 85025; 86140; 87070; 93005; A4663; J1650; J2185; J3490; J3535; J7030; J7040; U0003

== ENCOUNTER 2020-04-13 08:03 | Outpatient (CLI) | payer BC, OTHER ==
[~2020-04-13 08:03] MED LIST: ACET-2154 PO; ACET160E61 PO; ALBU18HF2 INH; BENZ200C53 PO; BISA-79 PO; CHOL10002 PO; DIPH25CA83 PO; ENOX40DI SQ; FOLI0.8T2 PO; GUAI5SYR PO; MAGN400O6 PO; MELA1TAB2 PO; METO-295 PO; MIDO5TAB4 PO; MULT-594 PO; ONDA4TAB11 PO; POLY50DR OP; THIA100T74 PO
[2020-04-13 08:40] LABS: BASOPHILS # (AUTO) 0.1 K/uL (0.0-8.0); BASOPHILS % (AUTO) 1.1 % (0.0-2.0); EOSINOPHILS # (AUTO) 0.1 K/uL (0.0-0.7); EOSINOPHILS % (AUTO) 0.9 % (0.0-7.0); HEMATOCRIT 35.7 % (31.2-41.9); HEMOGLOBIN 12.6 g/dL (10.9-14.3); LYMPHOCYTES # (AUTO) 1.8 K/uL (20.0-40.0); LYMPHOCYTES % (AUTO) 24.6 % (20.5-51.5); MEAN CORPUSCULAR HGB CONC 35 g/dL (32.3-35.6); MEAN CORPUSCULAR VOLUME 79.7 fL (75.5-95.3); MONOCYTES # (AUTO) 0.8 K/uL (2.0-10.0); MONOCYTES % (AUTO) 10.4 % (0.0-11.0); NEUTROPHILS # (AUTO) 4.6 K/uL (1.8-8.9); PLATELET COUNT (AUTO) 189 K/uL (179-408); RED BLOOD CELL COUNT(AUTO) 4.48 MIL/uL (3.63-4.92); WHITE BLOOD COUNT (AUTO) 7.2 K/uL (3.8-11.8)
[2020-04-13] MEDS ORDERED: SWABABLE VALVE TRANSFER SET EA MC ONE (08:56)
[2020-04-13] MEDS ORDERED: IV NORMAL SALINE 250 ML IV ONE (08:57)
[2020-04-13] MEDS ORDERED: IOHEXOL 350 100 ML INFUS..BTL ONE (08:57)
[2020-04-13 09:07] LABS: BILIRUBIN,TOTAL 1.8 mg/dL (0.2-1.0); CREATININE 0.7 mg/dL (0.6-1.3); MAGNESIUM 1.9 mg/dL (1.8-2.4); POTASSIUM 3.9 mmol/L (3.5-5.1)
[2020-04-13 09:58] LABS: THYROID STIMULATING HORMONE 1.401 mIU/mL (0.358-3.740)
== END 2020-04-13 23:59 | disposition home or self-care (01) ==
LOC: LAB 08:03
PROVIDERS: ATTEND Family Medicine
DX: E04.1 Nontoxic single thyroid nodule (principal); I36.1 Nonrheumatic tricuspid (valve) insufficiency; J18.9 Pneumonia, unspecified organism; J98.11 Atelectasis; M47.819 Spondylosis without myelopathy or radiculopathy, site unspecified; Z90.49 Acquired absence of other specified parts of digestive tract
CPT/HCPCS: 71275; 80053; 83735; 83880; 84436; 84439; 84443; 84480; 85025; 86376; 93307; Q9967; 70030-TC; J7050

== ENCOUNTER 2020-04-18 13:43 | Outpatient (CLI) | payer BC, OTHER | END 2020-04-18 23:59 | disposition home or self-care (01) | LOC: US 13:43 | PROVIDERS: ATTEND Family Medicine | DX: E04.2 Nontoxic multinodular goiter (principal) ==

== ENCOUNTER 2020-08-08 13:44 | Outpatient (CLI) | payer BC, OTHER ==
[~2020-08-08 13:44] MED LIST changes: +ACET160E36 PO; -ACET160E61 PO
== END 2020-08-08 23:59 | disposition home or self-care (01) ==
LOC: RAD 13:44
PROVIDERS: ATTEND Family Medicine
DX: R16.1 Splenomegaly, not elsewhere classified (principal); R91.8 Other nonspecific abnormal finding of lung field; Z90.49 Acquired absence of other specified parts of digestive tract
CPT/HCPCS: 71250